=== PATIENT | male | born 1985 | race Caucasian/White ===

== ENCOUNTER 2018-05-24 15:01 | Inpatient (IN) | payer MEDICAID ==
[~2018-05-24] VITALS: Ht 170.2 cm; Wt 87.5 kg
[2018-05-24 15:01] VITALS: BP_SYST 139
[2018-05-24 15:45] LABS: CALCIUM 9.9 mg/dL (8.4-11.0); CREATININE 0.8 mg/dL (0.55-1.30); POTASSIUM 3.8 mmol/L (3.5-5.1)
[2018-05-24 15:49] LABS: ALBUMIN 4.8 g/dL (3.4-4.8); TOTAL BILIRUBIN 1.5 mg/dL (0.0-1.0)
[2018-05-24 15:59] LABS: EOSINOPHILS % (AUTO) 0.5 % (0.0-4.0); MONOCYTES # (AUTO) 0.3 K/uL (0.0-1.0); WHITE BLOOD COUNT (AUTO) 8.8 K/uL (4.8-10.8)
[2018-05-24] MEDS ORDERED: IOHEXOL 100 ML IV ONE (16:01)
[2018-05-24 16:02] LABS: BASOPHILS % (AUTO) 0.3 % (0.0-2.0); HEMATOCRIT 54.3 % (36-54); HEMOGLOBIN 18.3 g/dL (14.0-18.0); LYMPHOCYTES # (AUTO) 1.7 K/uL (1.0-5.5); LYMPHOCYTES % (AUTO) 19.2 % (20.5-51.5); MEAN CORPUSCULAR HEMOGLOBIN 30 pg (27-31); MEAN CORPUSCULAR HGB CONC 34 % (32-36); MEAN CORPUSCULAR VOLUME 90 fL (79.0-98.0); MONOCYTES % (AUTO) 3.3 % (1.7-9.3); NEUTROPHILS # (AUTO) 6.8 K/uL (1.8-7.7); NEUTROPHILS % (AUTO) 76.7 % (40.0-70.0); PLATELET COUNT (AUTO) 215 K/uL (130-430); RED BLOOD CELL COUNT(AUTO) 6.06 MIL/uL (4.2-6.2); RED CELL DISTRIBUTION WIDTH 12.7 % (9.0-15.0)
[2018-05-24 16:11] LABS: BILIRUBIN,URINE NEGATIVE (NEGATIVE); BLOOD, URINE NEGATIVE (NEGATIVE); CLARITY/URINE CLEAR (CLEAR); COLOR,URINE YELLOW (YELLOW); GLUCOSE,URINE NEGATIVE (NEGATIVE); KETONES,URINE NEGATIVE (NEGATIVE); LEUKOCYTE ESTERASE ,URINE NEGATIVE (NEGATIVE); NITRITE, URINE NEGATIVE (NEGATIVE); PH,URINE 5.5 (5.0-8.0); PROTEIN URINE TRACE (NEGATIVE); UROBILINOGEN,URINE 0.2 (0.2-1.0)
[2018-05-24 16:34] LABS: BACTERIA,URINE MODERATE /HPF (None Seen); RBC,URINE 0-3 /HPF (0-3); WBC,URINE 0-3 /HPF (0-3)
[2018-05-24 16:35] LABS: MUCUS,URINE 4+ /LPF (None Seen); YEAST,URINE None Seen /HPF (None Seen)
[2018-05-24] MEDS ORDERED: MORPHINE 4 MG/ML INJ. SYRINGE IVP PRN (17:00)
[2018-05-24 17:23] VITALS: BP_SYST 119
[2018-05-24 17:45] VITALS: BP_SYST 119
[2018-05-24] MEDS: LR 1,000 ML IV SCH (17:45)
[2018-05-24] MEDS: PIPERACILLIN/TAZO 3.375/DEX-IS 50 ML IV SCH ×2 (18:01→23:23)
[2018-05-24 19:50] VITALS: BP_SYST 133
[2018-05-24] MEDS ORDERED: fentaNYL CITRATE/PF 100 MCG/2 ML AMP IVP PRN (20:45)
[2018-05-24] MEDS ORDERED: KETOROLAC TROMETHAMINE 30 MG VIAL IVP PRN (20:45)
[2018-05-24] MEDS ORDERED: ONDANSETRON HCL 4 MG/2 ML VIAL IVP PRN (20:45)
[2018-05-24] MEDS ORDERED: KETOROLAC TROMETHAMINE 30 MG VIAL ONE (21:25)
[2018-05-24] MEDS: fentaNYL CITRATE/PF 100 MCG/2 ML AMP IVP PRN ×2 (21:29→21:34)
[2018-05-24] MEDS ORDERED: fentaNYL CITRATE/PF 100 MCG/2 ML AMP ONE (21:33)
[2018-05-24] MEDS ORDERED: MEPERIDINE HCL/PF 25 MG/ML DISP.SYRIN ONE (21:59)
[2018-05-24 22:20] VITALS: BP_SYST 110
[2018-05-24] MEDS ORDERED: MEPERIDINE HCL/PF 50 MG/ML AMP IVP SCH (22:30)
[2018-05-24 23:47] VITALS: BP_SYST 102
[2018-05-25] MEDS: LR 1,000 ML IV SCH ×2 (01:20→12:29)
[2018-05-25 04:18] VITALS: BP_SYST 116
[2018-05-25] MEDS: PIPERACILLIN/TAZO 3.375/DEX-IS 50 ML IV SCH ×2 (05:09→12:29)
[2018-05-25 08:29] VITALS: BP_SYST 146
[2018-05-25] MEDS: MORPHINE 4 MG/ML INJ. SYRINGE IVP PRN ×2 (08:30→12:30)
[2018-05-25 11:35] VITALS: BP_SYST 106
[2018-05-25] MEDS ORDERED: HYDR-4272 PO (14:33)
[2018-05-25 14:58] VITALS: BP_SYST 106
[2018-05-25] MEDS ORDERED: LR 1,000 ML IV.SOLN IV ONE (20:00)
[2018-05-25] MEDS ORDERED: MIDAZOLAM HCL 5 MG/5 ML VIAL IVP ONE (20:00)
[2018-05-25] MEDS ORDERED: ROCURONIUM BROMIDE 10 MG/ML (ZEMURON) IV ONE (20:00)
[2018-05-25] MEDS ORDERED: PROPOFOL 200MG/ 20ML VIAL (DIPRIVAN) IV ONE (20:00)
[2018-05-25] MEDS ORDERED: fentaNYL CITRATE/PF 100 MCG/2 ML AMP IVP ONE (20:00)
[2018-05-25] MEDS ORDERED: WATER FOR IRRIGATION,STERILE 1,000 ML IRRIG.SOLN IR ONE (20:00)
[2018-05-25] MEDS ORDERED: NS 1000 ML IV.SOLN IV ONE (20:00)
[2018-05-25] MEDS ORDERED: SEVOFLURANE 15 MIN GAS INH ONE (20:00)
[2018-05-25] MEDS ORDERED: BUPIVACAINE /PF 0.25% 30 ML VIAL INJ ONE (20:00)
== END 2018-05-25 15:35 | disposition home or self-care (01) | DRG 234 ==
LOC: SED 15:01 → SMU 16:57
PROVIDERS: ADMIT Surgery; ATTEND Surgery
PROC: 0DTJ4ZZ Resection of Appendix, Percutaneous Endoscopic Approach (ICD-10-PCS; principal; 2018-05-24 20:00)
DX: K35.80 Unspecified acute appendicitis (principal)
CPT/HCPCS: 36415; 80053; 81000-TC; 83690-TC; 85025; 86886; 86900; 86901; 87081; 87086; 88304; 99285; C1727; J1885; J2175; J2250; J2270; J2543; J2704; J3010; J3490; J7030; J7120; Q9967